=== PATIENT | female | born 1980 | race Caucasian/White ===

== ENCOUNTER 2017-07-01 04:59 | Emergency (ER) | payer MEDICAID ==
[~2017-07-01] VITALS: Ht 167.6 cm; Wt 62.5 kg
[2017-07-01 05:02] VITALS: BP 108/71
[2017-07-01 06:09] LABS: BASOPHILS # (AUTO) 0.05 x10^3/uL (0-0.1); BASOPHILS % (AUTO) 1 % (0-1); EOSINOPHILS # (AUTO) 0.16 x10^3/uL (0-0.4); EOSINOPHILS % (AUTO) 2 % (1-7); LYMPHOCYTES # (AUTO) 2.27 x10^3/uL (1-3.4); LYMPHOCYTES % (AUTO) 29 % (22-44); MD NO; MEAN CORPUSCULAR HEMOGLOBIN 31.7 pg (27.0-34.8); MEAN CORPUSCULAR HGB CONC 33.5 g/dL (32.4-35.8); MEAN CORPUSCULAR VOLUME 94.7 fL (80-100); MEAN PLATELET VOLUME 6.6 fL (7.4-10.4); MONOCYTES # (AUTO) 0.62 x10^3/uL (0.2-0.8); MONOCYTES % (AUTO) 8 % (2-9); NEUTROPHILS % (AUTO) 60 % (42-75); PLATELET COUNT 257 x10^3/uL (130-400); RED BLOOD COUNT 4.24 x10^6/uL (3.82-5.3); RED CELL DISTRIBUTION WIDTH 13.1 % (9.6-15.2)
[2017-07-01 06:23] LABS: ANION GAP 7 mmol/L (5-15); CALCIUM 8.7 mg/dL (8.5-10.1); CHLORIDE 103 mmol/L (98-107)
[2017-07-01 06:28] LABS: MICROSCOPIC INDICATED
[2017-07-01 06:29] LABS: CULTURE INDICATED? YES
[2017-07-01 06:44] LABS: CREATININE 0.51 mg/dL (0.55-1.02)
== END 2017-07-01 07:38 | disposition home or self-care (01) ==
LOC: ED 05:45
DX: O23.11 Infections of bladder in pregnancy, first trimester (principal); O99.611 Diseases of the digestive system complicating pregnancy, first trimester; K59.00 Constipation, unspecified; O99.331 Smoking (tobacco) complicating pregnancy, first trimester; F17.210 Nicotine dependence, cigarettes, uncomplicated; F11.10 Opioid abuse, uncomplicated; Z3A.09 9 weeks gestation of pregnancy
CPT/HCPCS: 36415; 76801; 80048; 81001; 84702; 85025; 87077; 87086; 87186; 99285

== ENCOUNTER 2019-01-06 02:19 | Inpatient (IN) | payer BC, MEDICAID ==
[~2019-01-06] VITALS: Ht 170.2 cm; Wt 60.5 kg
[2019-01-07 07:33] VITALS: BP 93/60
== END 2019-01-07 09:00 | disposition left against medical advice (07) | DRG 603 ==
LOC: ED 05:13 → 4NOR 08:08 → ED 09:06
PROVIDERS: ADMIT Emergency Medicine; ATTEND Family Medicine
PROC: 0J943ZZ Drainage of Right Neck Subcutaneous Tissue and Fascia, Percutaneous Approach (ICD-10-PCS; principal; 2019-01-06)
DX: L02.11 Cutaneous abscess of neck (principal); L03.221 Cellulitis of neck; Z53.21 Procedure and treatment not carried out due to patient leaving prior to being seen by health care provider
CPT/HCPCS: 10030; 36415; 70491; 76942; 80053; 85025; 87015; 87040; 87070; 87075; 87077; 87102; 87116; 87186; 87205; 87206; 96374; 96375; 99285; G0378; J2405; J3370; Q9967; J2270; J3480; J7050